=== PATIENT | male | born 1965 | race Caucasian/White ===

== ENCOUNTER 2016-09-06 12:22 | Emergency (ER) | payer BC ==
[~2016-09-06] VITALS: Ht 182.9 cm; Wt 85.0 kg
[2016-09-06] MEDS ORDERED: PREDNISONE50 MG PO (15:33)
[2016-09-06] MEDS ORDERED: MOTRIN800 MG PO (15:33)
[2016-09-06 15:46] VITALS: BP 135/88
== END 2016-09-06 15:47 | disposition home or self-care (01) ==
LOC: EME 12:22
DX: M54.32 Sciatica, left side (principal)
CPT/HCPCS: 99281; 99283